=== PATIENT | female | born 1960 | race Caucasian/White ===

== ENCOUNTER → 2017-02-28 | Outpatient (CLI) | payer BC ==
[~2017-02-28] MED LIST: ACET-1651 PO; ASPI81TA2 PO; FERR256T PO; FLUT16SP EA NOSTRIL; LEVO75TA10 PO; MAGN400T6 PO; MULT-21 PO; MYCO180T3 PO; OMEP20CA10 PO; PARI2CAP3 PO; SIRO1TAB6 PO; ZOLP10TA6 PO
[2017-02-28 08:00] LABS: BASOPHILS % (AUTO) 0.5 % (0-2); EOSINOPHILS # (AUTO) 0.3 T/MM3 (0-0.5); EOSINOPHILS % (AUTO) 3.3 % (0-4); HCT - HEMATOCRIT 32.8 % (36-46); HGB - HEMOGLOBIN 11.1 GM/DL (12-16); IMMATURE GRANULOCYTE # (AUTO) 0.01 T/MM3 (0.00-0.03); IMMATURE GRANULOCYTE % (AUTO) 0.1 % (0.0-0.5); LYMPHOCYTES # (AUTO) 3.3 T/MM3 (1-4.8); LYMPHOCYTES % (AUTO) 38.5 % (23-45); MEAN CORPUSCULAR HGB 26.7 UUG (26-34); MEAN CORPUSCULAR HGB CONC(MCHC 33.8 GM/DL (31-37); MEAN CORPUSCULAR VOLUME 78.8 UM3 (80-100); MEAN PLATELET VOLUME 9.8 UM3 (9.4-12.4); MONOCYTES # (AUTO) 0.7 T/MM3 (0-0.8); NEUTROPHILS #(AUTO)-ABSOLUTE 4.2 T/MM3 (1.8-7.7); NEUTROPHILS % (AUTO) 49.6 % (33-66); RED BLOOD COUNT 4.16 M/MM3 (4.00-5.20); WBC - WHITE BLOOD COUNT 8.5 T/MM3 (4.5-11.0)
[2017-02-28 08:17] LABS: ALBUMIN 4.5 G/DL (3.5-5.0); ANION GAP 15 MEQ/L (5-15); BUN/CREATININE RATIO 11 RATIO (6-26); CHLORIDE 104 MEQ/L (98-107); CO2 - CARBON DIOXIDE 25 MEQ/L (22-30); CREATININE 2.6 MG/DL (0.7-1.2); GLOMERULAR FILTRATION RATE 19; GLUCOSE 90 MG/DL (65-110); POTASSIUM 4.2 MEQ/L (3.6-5); SODIUM 144 MEQ/L (134-144)
[2017-02-28 08:39] LABS: PHOSPHORUS 4.1 MG/DL (2.5-4.5)
== END ==
LOC: LAB 07:33
PROVIDERS: ATTEND Internal Medicine Nephrology
DX: N18.4 Chronic kidney disease, stage 4 (severe) (principal)
CPT/HCPCS: 36415; 80069; 80195; 83970; 85025